=== PATIENT | female | born 1935 | race Caucasian/White ===

== ENCOUNTER 2018-02-04 08:14 | Outpatient (CLI) | payer OTHER ==
[~2018-02-04 08:14] MED LIST: OSEL75CA PO; SORBUTUSS LIQU473 ML PO; TESSALON PERLE100 M1 PO
== END 2018-02-04 08:19 | disposition home or self-care (01) ==
LOC: RAD 08:14
DX: J45.998 Other asthma (principal)

== ENCOUNTER → 2018-05-13 | Outpatient (CLI) | payer OTHER | END | disposition home or self-care (01) | LOC: NUCLEAR 11:00 | DX: R06.02 Shortness of breath (principal); I27.0 Primary pulmonary hypertension ==

== ENCOUNTER 2018-07-27 14:36 | Emergency (ER) | payer OTHER ==
[~2018-07-27] VITALS: Ht 154.9 cm; Wt 63.5 kg
== END 2018-07-27 20:00 | disposition home or self-care (01) ==
LOC: ER 14:36
DX: J40 Bronchitis, not specified as acute or chronic (principal); B34.9 Viral infection, unspecified; J34.1 Cyst and mucocele of nose and nasal sinus; J11.1 Influenza due to unidentified influenza virus with other respiratory manifestations

== ENCOUNTER 2020-04-09 12:34 | Outpatient (CLI) | payer OTHER | END 2020-04-09 12:35 | disposition home or self-care (01) | LOC: RAD 12:34 | DX: M16.0 Bilateral primary osteoarthritis of hip (principal) ==

== ENCOUNTER 2020-06-18 08:36 | Outpatient (CLI) | payer OTHER | END 2020-06-18 08:46 | disposition home or self-care (01) | LOC: SONOGRAMA 08:36 → MAMO-SONO 09:15 | PROVIDERS: ATTEND Internal Medicine Hepatology | DX: R10.11 Right upper quadrant pain (principal) ==

== ENCOUNTER 2021-02-04 13:44 | Outpatient (CLI) | payer OTHER | END 2021-02-04 14:00 | disposition home or self-care (01) | LOC: RAD 13:44 | PROVIDERS: ATTEND Internal Medicine | DX: M25.511 Pain in right shoulder (principal) ==

== ENCOUNTER 2021-04-21 12:51 | Outpatient (CLI) | payer OTHER | END 2021-04-21 12:54 | disposition home or self-care (01) | LOC: NUCLEAR 12:51 | PROVIDERS: ATTEND Specialist | DX: M81.0 Age-related osteoporosis without current pathological fracture (principal) ==

== ENCOUNTER 2021-04-21 13:44 | Outpatient (CLI) | payer OTHER | END 2021-04-21 13:47 | disposition home or self-care (01) | LOC: RAD 13:44 | PROVIDERS: ATTEND Specialist | DX: J45.998 Other asthma (principal) ==

== ENCOUNTER 2021-07-05 07:44 | Outpatient (CLI) | payer OTHER | END 2021-07-05 07:49 | disposition home or self-care (01) | LOC: SONOGRAMA 07:44 → MAMO-SONO 08:15 | PROVIDERS: ATTEND Internal Medicine Hepatology | DX: Q61.02 Congenital multiple renal cysts (principal); K76.0 Fatty (change of) liver, not elsewhere classified ==

== ENCOUNTER 2021-12-15 10:44 | Emergency (ER) | payer OTHER ==
[~2021-12-15] VITALS: Ht 154.9 cm; Wt 56.7 kg
== END 2021-12-15 16:12 | disposition home or self-care (01) ==
LOC: ER 10:44 → CPU-OBS 10:48 → ER 10:48
DX: R07.89 Other chest pain (principal); R06.02 Shortness of breath

== ENCOUNTER 2022-02-16 07:29 | Outpatient (CLI) | payer OTHER | END 2022-02-16 07:33 | disposition home or self-care (01) | LOC: SONOGRAMA 07:29 | PROVIDERS: ATTEND Internal Medicine Cardiovascular Disease | DX: K76.0 Fatty (change of) liver, not elsewhere classified (principal); K80.00 Calculus of gallbladder with acute cholecystitis without obstruction ==

== ENCOUNTER 2023-01-09 07:05 | Outpatient (CLI) | payer OTHER | END 2023-01-09 07:07 | disposition home or self-care (01) | LOC: NUCLEAR 07:05 | PROVIDERS: ATTEND Internal Medicine Cardiovascular Disease | DX: I25.10 Atherosclerotic heart disease of native coronary artery without angina pectoris (principal) ==

== ENCOUNTER → 2023-01-09 07:16 | Outpatient (CLI) | payer OTHER | END | disposition home or self-care (01) | LOC: LAB 07:16 | PROVIDERS: ATTEND Internal Medicine | DX: U07.1 COVID-19 (principal); B34.1 Enterovirus infection, unspecified ==

== ENCOUNTER 2023-03-29 07:55 | Outpatient (CLI) | payer OTHER | END 2023-03-29 07:59 | disposition home or self-care (01) | LOC: RAD 07:55 | PROVIDERS: ATTEND Specialist | DX: J45.991 Cough variant asthma (principal) ==

== ENCOUNTER 2023-10-14 06:15 | Emergency (ER) | payer OTHER ==
[~2023-10-14] VITALS: Ht 152.4 cm; Wt 58.1 kg
[2023-10-14] MEDS ORDERED: COZAAR50 MG PO (06:45)
[2023-10-14] MEDS ORDERED: FOLIC ACID1 MG PO (06:46)
[2023-10-14 09:53] LABS: HEMATOCRIT 39.7 % (36.0-45.00); HEMOGLOBIN 12.8 g/dL (12.0-15.00); MEAN CELL VOLUME 83.3 fL (80.00-100.00); MEAN CORPUSCULAR HEMOGLOBIN 26.8 pg (27.00-32.0); MEAN CORPUSCULAR HGB CONC 32.2 g/dl (32.0-36.0); PLATELET COUNT 188 K/uL (150-450); RED BLOOD COUNT 4.77 M/uL (4.00-6.00); RED CELL DISTRIBUTION WIDTH 14.1 % (11.5-14.5)
== END 2023-10-14 11:33 | disposition home or self-care (01) ==
LOC: ER 06:15
PROVIDERS: General Practice
DX: J40 Bronchitis, not specified as acute or chronic (principal); I10 Essential (primary) hypertension; Z91.041 Radiographic dye allergy status; Z20.822 Contact with and (suspected) exposure to COVID-19
CPT/HCPCS: 36415; 71046; 94640; 96365; 99284; J0696; J2920

== ENCOUNTER 2025-03-09 07:44 | Outpatient (CLI) | payer OTHER ==
[~2025-03-09 07:44] MED LIST changes: +COZAAR50 MG PO; +FOLIC ACID1 MG PO
== END 2025-03-09 07:46 | disposition home or self-care (01) ==
LOC: RAD 07:44
PROVIDERS: ATTEND Specialist
DX: J45.998 Other asthma (principal)

== ENCOUNTER 2025-06-02 09:44 | Emergency (ER) | payer OTHER ==
[~2025-06-02] VITALS: Ht 154.9 cm; Wt 55.3 kg
[2025-06-02] MEDS ORDERED: GUAIFENESIN/DEXTROMETHORPHAN 100MG/10ML BLIST.PACK PO ONE (10:15)
[2025-06-02 10:45] LABS: BASO % 0.6 % (0.1-1.2); EOS # 0.04 (0.04-0.54); EOS % 0.6 % (0.7-7.0); LYMPH # 1.20 (1.18-3.74); LYMPH % 16.9 % (19.3-53.1); MEAN PLATELET VOLUME 10.50 fl (9.4-12.4); MONO # 0.78 (0.24-0.82); MONO % 11.0 % (4.7-12.5); NEUT # 4.99 (1.56-6.13); NEUT % 69.9 % (34.0-71.1); RED CELL DISTRIBUTION WIDTH 13.7 % (11.6-14.4)
[2025-06-02 11:16] LABS: COVID-19 AG NEGATIVE (NEGATIVE)
[2025-06-02 11:17] LABS: ALT/SGPT 18.0 U/L (12-78); AST/SGOT 14.0 U/L (15-37); BILIRUBIN TOTAL 1.84 mg/dL (0.3-1.2); BUN CREA RATIO 21.0 (7.0-25.0); CREATININE SERUM 0.78 mg/dL (0.55-1.02); GFR 69.7; GLOBULINA 3.7 G/DL (2.4-3.5); GLUCOSE FASTING 107.0 mg/dL (65-100); OSMOLALITY SERUM 287.0 MOSM/KG (275-295)
[2025-06-02 15:27] LABS: URINE APPEARANCE Clear; URINE BILIRRUBIN Negative (NEGATIVE); URINE BLOOD Trace; URINE COLOR Dark Yellow; URINE GLUCOSE Negative (NEGATIVE); URINE KETONE 15 (NEGATIVE); URINE LEUKOCYTE Small; URINE NITRATE Negative; URINE UROBILINOGEN 0.2 E.U./dl
[2025-06-02 15:31] LABS: URINE BACTERIA 51.5 uL (0.0-1933); URINE CAST 2.63 uL (0.0-1.40); URINE EPITHELIAL CELLS 49.9 uL (0.0-38.8); URINE RBC 37.5 uL (0.0-20.8); URINE WBC 83.1 uL (0.0-23.2)
[2025-06-02 16:04] LABS: URINE PROTEIN 100 (NEGATIVE)
[2025-06-02 16:14] LABS: TYPE CELLS SQUAMOUS; URINE MUCUS HEAVY
== END 2025-06-02 18:30 | disposition home or self-care (01) ==
LOC: ER 09:44
PROVIDERS: Emergency Medicine
DX: S09.8XXA Other specified injuries of head, initial encounter (principal); J40 Bronchitis, not specified as acute or chronic; W18.39XA Other fall on same level, initial encounter; Y93.89 Activity, other specified; Y92.89 Other specified places as the place of occurrence of the external cause; Z91.041 Radiographic dye allergy status; I10 Essential (primary) hypertension; Z20.822 Contact with and (suspected) exposure to COVID-19

== ENCOUNTER 2025-06-13 10:06 | Emergency (ER) | payer OTHER ==
[~2025-06-13] VITALS: Ht 154.9 cm; Wt 55.3 kg
[2025-06-13 13:47] LABS: URINE APPEARANCE Cloudy; URINE BILIRRUBIN Negative (NEGATIVE); URINE BLOOD Large; URINE COLOR Yellow; URINE GLUCOSE Negative (NEGATIVE); URINE KETONE 15 (NEGATIVE); URINE LEUKOCYTE Trace; URINE NITRATE Negative; URINE UROBILINOGEN 1.0 E.U./dl
[2025-06-13 13:55] LABS: URINE BACTERIA 465.6 uL (0.0-1933); URINE CAST 2.05 uL (0.0-1.40); URINE EPITHELIAL CELLS 45.0 uL (0.0-38.8); URINE RBC 2418.5 uL (0.0-20.8); URINE WBC 91.3 uL (0.0-23.2)
[2025-06-13 14:08] LABS: URINE PROTEIN 300 (NEGATIVE)
[2025-06-13 14:09] LABS: URINE CRYSTALS FEW /HPF
[2025-06-13 14:17] LABS: BASO % 0.4 % (0.1-1.2); EOS # 0.01 (0.04-0.54); EOS % 0.1 % (0.7-7.0); LYMPH # 0.63 (1.18-3.74); LYMPH % 4.7 % (19.3-53.1); MEAN PLATELET VOLUME 10.60 fl (9.4-12.4); MONO # 0.54 (0.24-0.82); MONO % 4.1 % (4.7-12.5); NEUT # 12.03 (1.56-6.13); NEUT % 90.5 % (34.0-71.1); RED CELL DISTRIBUTION WIDTH 13.7 % (11.6-14.4)
[2025-06-13 14:29] LABS: ALT/SGPT 21.0 U/L (12-78); AST/SGOT 21.0 U/L (15-37); BILIRUBIN TOTAL 1.18 mg/dL (0.3-1.2); BUN CREA RATIO 24.0 (7.0-25.0); CREATININE SERUM 0.76 mg/dL (0.55-1.02); GFR 71.82; GLOBULINA 3.4 G/DL (2.4-3.5); GLUCOSE FASTING 106.0 mg/dL (65-100); OSMOLALITY SERUM 289.0 MOSM/KG (275-295)
[2025-06-13] MEDS ORDERED: CEFTRIAXONE SODIUM 1,000 MG VIAL IV ONE (14:30)
[2025-06-13] MEDS ORDERED: CEFTRIAXONE SODIUM 1,000 MG VIAL ONE (14:33)
[2025-06-13] MEDS ORDERED: BACTRIM DS TAB1 EACH PO (20:17)
[2025-06-13] MEDS ORDERED: PEPCID AC20 MG PO (20:17)
[2025-06-13] MEDS ORDERED: TAMS0.4C PO (20:17)
[2025-06-13] MEDS ORDERED: NORFLEX100MG PO (20:17)
== END 2025-06-13 20:45 | disposition home or self-care (01) ==
LOC: ER 10:06
PROVIDERS: Emergency Medicine
DX: N20.0 Calculus of kidney (principal); R10.9 Unspecified abdominal pain; Z91.041 Radiographic dye allergy status

== ENCOUNTER 2025-07-07 23:57 | Emergency (ER) | payer OTHER ==
[~2025-07-07] VITALS: Ht 154.9 cm; Wt 55.8 kg
[~2025-07-07 23:57] MED LIST changes: +BACTRIM DS TAB1 EACH PO; +NORFLEX100MG PO; +PEPCID AC20 MG PO; +TAMS0.4C PO
[2025-07-08] MEDS ORDERED: DIPHENHYDRAMINE HCL 50 MG/ML VIAL 1ML IV STA (00:27)
[2025-07-08] MEDS ORDERED: METHYLPREDNISOLONE SOD SUCC 125 MG VIAL IV STA (00:28)
[2025-07-08] MEDS ORDERED: ZYRTEC10 M3 PO (02:14)
== END 2025-07-08 02:26 ==
LOC: ER 23:57
DX: T78.40XA Allergy, unspecified, initial encounter (principal); R21 Rash and other nonspecific skin eruption; I10 Essential (primary) hypertension; Z91.040 Latex allergy status
CPT/HCPCS: 96365; 99282; J1200; J3490